=== PATIENT | female | born 1990 | race Caucasian/White ===

== ENCOUNTER 2018-08-19 06:21 | Inpatient (IN) ==
[2018-08-19] MEDS ORDERED: Naloxone Inj 0.4 MG/ML Vial IV.PUSH PRN ×2 (07:49→17:28)
[2018-08-19] MEDS ORDERED: fentaNYL Citrate Inj 100 MCG/2 ML Ampul IV.PUSH PRN ×2 (07:49)
[2018-08-19] MEDS ORDERED: Oxytocin 30 Units/500ml Premix 30 UNITS/500 ML BAG IV.SIG ONE (07:49)
[2018-08-19] MEDS ORDERED: Sodium Chlor 0.9% Inj 500 ML IV.SIG PRN (07:49)
[2018-08-19] MEDS ORDERED: Oxytocin 30 Units/500ml Premix 30 UNITS/500 ML BAG IV.SIG PRN (07:52)
[2018-08-19 07:57] LABS: Baso % (Auto) 0.3 % (0.0-2.0); Eos # (Auto) 0.1 th/mm3 (0.0-0.4); Eos % (Auto) 0.7 % (0.0-4.0); Hematocrit 29.5 % (35.0-46.0); Hemoglobin 9.3 gm/dL (11.6-15.3); Lymph # (Auto) 2.2 th/mm3 (1.0-4.8); Lymph % (Auto) 21.4 % (9.0-44.0); Mean Corpuscular HGB Conc 31.6 % (32.0-36.0); Mean Corpuscular Hemoglobin 22.7 pg (27.0-34.0); Mean Corpuscular Volume 71.9 fL (80.0-100.0); Mean Platelet Volume 9.3 fL (7.0-11.0); Mono # (Auto) 0.7 th/mm3 (0.0-0.9); Mono % (Auto) 6.5 % (0.0-8.0); Neut # (Auto) 7.2 th/mm3 (1.8-7.7); Neut % (Auto) 71.1 % (16.0-70.0); Platelet Count 202 th/mm3 (150-450); Red Cell Distribution Width 16.5 % (11.6-17.2); White Blood Count 10.2 th/mm3 (4.0-11.0)
[2018-08-19] MEDS ORDERED: Citric Acid/Sodium Citrate Liq 30 ML UDC PO SCH (08:00)
[2018-08-19 08:01] LABS: Bacteria,Urine Rare /hpf; Bilirubin,Urine Negative (Negative); Clarity,Urine Clear (Clear); Color,Urine Yellow (Yellw/Straw); Glucose,Urine (UA) Negative (Negative); Leukocyte Esterase,Urine Small (Negative); Nitrite,Urine Negative (Negative); Specific Gravity,Urine 1.012 (1.002-1.035); Squamous Epithelial Cell,Urine 2 /hpf (0-5)
--- NOTE | 2018-08-19 08:09 | P.HPOB ---
History of Present Illness Service: labor Primary Care Physician: Earnestine Smart MD Chief Complaint: 39+ weeks mild pre eclampsia History of Present Illness: 28 yo mwf P2 at 39 1/7 weeks EGA here for arom and pitocin if needed. Has had mild nausea, vomiting, intermittent headaches, marked edema. Labs have been reassuring. No leaking, bleeding or regular contractions. PNC with HOGA Mild elevated BPs through the . 2 prior term SVDs. Hx of LGSIL GBS negative No GDM or PTL. - Inpatient Certification I certify that the inpatient services were ordered in accordance with Medicare regulations governing the order. This includes certification that hospital inpatient services are reasonable and necessary and in the case of services not specified as inpatient-only under 42 CFR 419.22(n), that they are appropriately provided as inpatient services in accordance to with the 2-midnight benchmark under 43 CFR 412.3(e) Estimated Total Length of Stay (Days): 3 Plans for Post Hospital Care: Home Review of Systems All other systems reviewed negative except as stated in HPI [facility] - Medical History Medical History: Medical History (Last Updated 07/25/18 @ 19:22 by Reji Queen MD) Asthma - Social History I have reviewed the patient's Social History: Yes - Tobacco History Second Hand Smoke Exposure: No Smoking Status: Never smoker - Travel History Recent Travel in the [place] Within the Last 8 Weeks: No Recent Travel Out of the Country Within the Last 8 Weeks: No - Immunization History Tetanus Immunization: Unsure Hx Influenza Vaccine This Season: No Medications and Allergies Active Medications: Active Medications Citric Acid/Sodium Citrate (Sodium Citrate/Citric Acid Liq) 30 ml PO [employer]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 [facility] Stop: 08/23/18 07:59 Fentanyl Citrate (Fentanyl Inj) 50 mcg IV.PUSH Q1H PRN PRN Reason: Pain Scale 3 - 5 Fentanyl Citrate (Fentanyl Inj) 100 mcg IV.PUSH Q1H PRN PRN Reason: PAIN SCALE 6 TO 10 Lactated Ringer's (Lr 1000 Ml Inj) 1,000 mls @ 3,000 mls/hr IV.SIG UNSCH PRN PRN Reason: compromise or epidural Sodium Chloride (Ns Inj) 500 mls @ 1,000 mls/hr IV.SIG UNSCH PRN PRN Reason: SEE LABEL COMMENTS Sodium Chloride (Ns Inj) 1,000 mls @ 100 mls/hr IV.CONT .Q10H PRN PRN Reason: SEE LABEL COMMENTS Oxytocin (Pitocin 30 Units/Ns 500 Ml Premix) 30 units in 500 mls @ 999 mls/hr IV.SIG BOLUS ONE Stop: 08/19/18 08:19 Lactated Ringer's (Lr 1000 Ml Inj) 1,000 mls @ 125 mls/hr IV.CONT .Q8H JANNIE Oxytocin (Pitocin 30 Units/Ns 500 Ml Premix) 30 units in 500 mls @ 2 mls/hr IV.SIG TITRATE PRN; Protocol PRN Reason: For induction of labor Lidocaine HCl (Xylocaine 1% Inj) 0.1 ml I-DERMAL PRN PRN PRN Reason: For IV start Stop: 08/22/18 07:48 Lidocaine HCl (Xylocaine 1% Inj) 10 ml INFILTRATN PRN PRN PRN Reason: For episiotomy repair Stop: 08/21/18 07:48 Mineral Oil (Muri-Lube Oil) 10 ml TOPICAL PRN PRN PRN Reason: PRN perineal massage Naloxone HCl (Narcan Inj) 0.1 mg IV.PUSH Q2M PRN PRN Reason: for opiate reversal Allergies Allergy/AdvReac Type Severity Reaction Status Date / Time amoxicillin Allergy Severe hives Verified 04/01/18 12:55 Home Medications Medication Instructions Recorded Confirmed Type PNV cmb#95-ferrous fumarate-FA 1 tab PO DAILY 04/01/18 08/19/18 History [] albuterol sulfate 1 puff INHALATION Q4-6H PRN 04/01/18 08/19/18 History ferrous sulfate [Iron (ferrous 325 mg PO BID 08/19/18 08/19/18 History sulfate)] Exam Vital signs: Vital Signs 08/19/18 07:05 Temperature 98.8 F Pulse Rate 85 Respiratory Rate 18 Blood Pressure 114/64 Intake & Output 08/18/18 08/19/18 08/19/18 18:59 06:59 18:59 Weight 106.594 kg 105.233 kg Other: Weight On Admission 105.233 kg - Constitutional no acute distress - Routine HEENT Exam Head: Present: normocephalic Eye: Present: PERRL ENT: Present: mucous membranes moist - Routine Neck Exam Present: supple - Routine Respiratory Exam Present: CTA bilaterally - Routine Cardiovascular Exam Present: RRR - Routine Abdominal Exam Present: soft, normoactive bowel sounds - Routine Extremities Exam Present: edema - Routine Skin Exam Present: intact - Routine Neurological Exam Present: alert, oriented X3 (2-3/ 30%/-2 arom clear and minimal EFW 7 1/2 ounds pelvis proven) Results - Labs CBC & Chem 7: 08/19/18 06:58 08/19/18 06:58 Labs: Laboratory Results - last 24 hr 08/19/18 08/19/18 06:58 06:58 WBC 10.2 RBC 4.10 Hgb 9.3 L Hct 29.5 L MCV 71.9 L MCH 22.7 L MCHC 31.6 L RDW 16.5 Plt Count 202 MPV 9.3 Neut % (Auto) 71.1 H Lymph % (Auto) 21.4 Dukes % (Auto) 6.5 Eos % (Auto) 0.7 Baso % (Auto) 0.3 Neut # (Auto) 7.2 Lymph # (Auto) 2.2 Dukes # (Auto) 0.7 Eos # (Auto) 0.1 Baso # (Auto) 0.0 WBC Differential . Differential Comment Auto diff final Urine Color Yellow Urine Clarity Clear Urine pH 5.0 Ur Specific [place] 1.012 Urine Protein Negative Urine Glucose (UA) Negative Urine Ketones Negative Urine Occult Blood Small H Urine Nitrate Negative Urine Bilirubin Negative Urine Urobilinogen Less than 2 Ur Leukocyte Esterase Small H Urine RBC 1 Urine WBC 3 Ur Squamous Epith Cells 2 Urine Bacteria Rare H Micro UA Comment Culture not ind Ur Microscopic Review Not Reportable Urine Culture Comments Culture not ind Caprini VTE Risk Assessment Caprini VTE Risk Assessment: No/Low Risk (score <= 1) Caprini Risk Assessment Model: Point Value = 1 Point Value = 2 Point Value = 3 Point Value = 5 Age 41-60 Minor surgery BMI > 25 kg/m2 Swollen legs Varicose veins or History of unexplained or recurrent spontaneous Oral contraceptives or hormone replacement Sepsis (< 1 month) Serious lung disease, including pneumonia (< 1 month) Abnormal pulmonary function Acute myocardial infarction Congestive heart failure (< 1 month) History of inflammatory bowel disease Medical patient at bed rest Age 61-74 Arthroscopic surgery Major open surgery (> 45 min) Laparoscopic surgery (> 45 min) Malignancy Confined to bed (> 72 hours) Immobilizing plaster cast Central venous access Age >= 75 History of VTE Family history of VTE Factor V Leiden Prothrombin [id number] Lupus anticoagulant Anticardiolipin antibodies Elevated serum homocysteine Heparin-induced thrombocytopenia Other congenital or acquired thrombophilia Stroke (< 1 month) Elective arthroplasty Hip, pelvis, or leg fracture Acute spinal cord injury (< 1 month) Prophylaxis Regimen: Total Risk Factor Score Risk Level Prophylaxis Regimen 0-1 Low Early ambulation 2 Moderate Order ONE of the following: *Sequential Compression Device (SCD) *Heparin 5000 units SQ BID 3-4 Higher Order ONE of the following medications: *Heparin 5000 units SQ TID *Enoxaparin/Lovenox 40 mg SQ daily (WT < 150 kg, CrCl > 30 mL/min) *Enoxaparin/Lovenox 30 mg SQ daily (WT < 150 kg, CrCl > 10-29 mL/min) *Enoxaparin/Lovenox 30 mg SQ BID (WT < 150 kg, CrCl > 30 mL/min) AND/OR *Sequential Compression Device (SCD) 5 or more Highest Order ONE of the following medications: *Heparin 5000 units SQ TID (Preferred with Epidurals) *Enoxaparin/Lovenox 40 mg SQ daily (WT < 150 kg, CrCl > 30 mL/min) *Enoxaparin/Lovenox 30 mg SQ daily (WT < 150 kg, CrCl > 10-29 mL/min) *Enoxaparin/Lovenox 30 mg SQ BID (WT < 150 kg, CrCl > 30 mL/min) AND *Sequential Compression Device (SCD) Assessment and Plan - Diagnosis (1) 39 weeks gestation of Code(s): Z3A.39 - 39 weeks gestation of Status: Acute (2) Pre-eclampsia Code(s): O14.90 - Unspecified pre-eclampsia, unspecified trimester Status: Acute - Plan anticipate normotensive at this time so will not treat as hypertensive unless BP elevated
[2018-08-19 08:16] LABS: Alanine Aminotransferase 18 U/L (10-53); Albumin 2.6 g/dL (3.4-5.0); Anion Gap 8 meq/L (5-15); Aspartate Aminotransferase 19 U/L (15-37); Blood Urea Nitrogen 7 mg/dL (7-18); Calcium 8.9 mg/dL (8.5-10.1); Carbon Dioxide 24.1 meq/L (21.0-32.0); Chloride 106 meq/L (98-107); Glomerular Filtration Rate Greater Than 89 mL/min (>89); Glucose,Random 76 mg/dL (74-106); Sodium 138 meq/L (136-145)
[2018-08-19 08:18] LABS: Alkaline Phosphatase 162 U/L (45-117); Total Protein 6.9 g/dL (6.4-8.2)
[2018-08-19] MEDS ORDERED: fentaNYL 2MCG-Bupiv 0.125% Epi 150 ML EPIDURAL ONE (11:42)
--- NOTE | 2018-08-19 11:48 | P.OBGPN ---
This is copied and pasted H&P from dicated H&P, the transcribed note was placed in a different patient encounter DATE OF ANTICIPATED ADMISSION: 08/18/2018 CHIEF COMPLAINT: Induction of labor. HISTORY OF PRESENT ILLNESS: This patient is a 28-year-old G4, P2-0-1-2 who will be at 39 weeks and 1 day by her LMP and a 16-week ultrasound with estimated due date of 08/24/2018, admitted for induction of labor. PAST MEDICAL HISTORY: Asthma, obesity. MEDICATIONS: 1. Albuterol. 2. vitamins. 3. Iron. ALLERGIES: AMOXICILLIN. SURGICAL HISTORY: D and C. SOCIAL HISTORY: No tobacco, alcohol or drug use. FAMILY HISTORY: No pertinent positive family history. OBSTETRICAL HISTORY: SAB at 16 weeks in 2013 with D and C; 2011 had a vaginal delivery, weighing 7 pounds 7 ounces; in 2012, a term vaginal delivery without complication. PHYSICAL EXAMINATION: Based on encounter from 08/10/2018. GENERAL: Alert, oriented x3, resting comfortably, in no acute distress. PULMONARY: Lungs are clear to auscultation bilaterally. CARDIAC: Regular rate and rhythm. No murmurs, rubs or gallops. ABDOMEN: Soft, gravid, nontender. GENITOURINARY: Normal external genitalia. One, thick, high soft and anterior. EXTREMITIES: No clubbing, cyanosis or edema. LABS: Please see scanned in [facility] records. ASSESSMENT AND PLAN: This patient is a 28-year-old G4, P2-0-1-2 who will be at 39 weeks and 1 day, with estimated due date of 08/24/2018 for induction of labor for social reasons: 1. : Will be placed on monitoring upon arrival; she is having a male named [place]. She has an anterior placenta. GBS negative. Estimated weight on 08/03/2018 is 3023 grams in the 62nd percentile. 2. Induction of labor: Romero score of 5; plan for vaginal misoprostol every 4 hours until favorable, discussed risks of induction of labor. 3. Asthma, mild: Controlled without medications. 4. Obesity, Passed 1-hour Glucola. 5. History of trichomonas: Status post treatment and test of cure negative this . 6. Anemia: May type and screen or cross depending on her level upon arrival, has been taking iron throughout her .
[2018-08-19] MEDS ORDERED: fentaNYL Citrate Inj 100 MCG/2 ML Ampul EPIDURAL ONE (13:01)
[2018-08-19] MEDS ORDERED: fentaNYL 2MCG-Bupiv 0.125% Epi 150 ML EPIDURAL PRN (13:01)
[2018-08-19] MEDS: Sod Chloride 0.9% Inj 1,000 ML IV.CONT PRN ×2 (15:05→15:17)
[2018-08-19] MEDS ORDERED: Measles/Mumps/Rubella Vaccine Inj 0.5 ML Vial SQ ONE (16:00)
[2018-08-19] MEDS ORDERED: Diphtheria/Tetanus/Pertussis Vaccine Inj 0.5 ML Syringe IM ONE (16:00)
[2018-08-19 17:26] LABS: Cord Arterial Blood HCO3 25.3
[2018-08-19] MEDS ORDERED: Oxytocin 30 Units/500ml Premix 30 UNITS/500 ML BAG IV.CONT PRN (17:28)
[2018-08-19] MEDS ORDERED: Benzocaine 20% Top Spray 60 ML Can TOPICAL PRN (17:28)
[2018-08-19] MEDS ORDERED: Witch Hazel 50%/Glyderin 12.5% 40 Pad Jar RECTAL PRN (17:28)
[2018-08-19] MEDS ORDERED: Bisacodyl 10 MG Supp RECTAL PRN (17:28)
--- NOTE | 2018-08-19 17:28 | P.OBDELI ---
Weeks Gestation: 39 Patient Started Active Labor: Yes Medical Induction of Labor: Yes Artificial Rupture of Membrane: Yes Anesthesia: Epidural Episiotomy: none Vaginal Delivery: Normal Presentation: Occiput anterior Nuchal Cord: x1 Delayed Cord Clamping (45 sec): No (tightly around neck and very short) Placenta: Spontaneous delivery, Intact, 3 vessel cord, Cord pH Laceration: None Estimated blood loss (mL): 300 : Male Infant Male A Infant Delivery Date: 08/19/18 Delivery Time: 17:27 score (1 min): 8 score (5 min): 9
[2018-08-19] MEDS ORDERED: Zolpidem Tartrate 5 MG Tablet PO PRN (21:00)
[2018-08-19] MEDS: Senna/Docusate Sodium 8.6/50 MG Tablet PO SCH (21:00)
[2018-08-20] MEDS: Acetaminophen 325 MG Tablet PO PRN ×3 (00:30→20:16)
--- NOTE | 2018-08-20 08:12 | P.PNOB ---
Subjective Post day: 1 Interval history: resting quietly discussed that her infant is headed to NICU for some persistent TTN--likely due to the very short cord/nuchal cord and stress with labor. Should be self limiting. reassured will breast feed no complaints Objective Vital Signs/I&O: Vital Signs 08/19/18 08:30 08/19/18 09:00 08/19/18 09:15 Temperature 98.2 F Pulse Rate 98 H 95 H Respiratory Rate 17 Blood Pressure 125/86 122/79 08/19/18 09:26 08/19/18 09:52 08/19/18 10:00 Temperature Pulse Rate 97 H 97 H 91 H Respiratory Rate Blood Pressure 97/66 L 109/79 128/90 08/19/18 10:50 08/19/18 11:00 08/19/18 11:30 Temperature Pulse Rate 92 H 91 H 87 Respiratory Rate 16 Blood Pressure 115/80 120/78 125/77 08/19/18 11:41 08/19/18 12:15 08/19/18 12:30 Temperature 98.9 F Pulse Rate 104 H 97 H Respiratory Rate 18 Blood Pressure 132/81 100/51 L 08/19/18 13:00 08/19/18 13:05 08/19/18 13:10 Temperature 98.2 F Pulse Rate 91 H 89 90 Respiratory Rate Blood Pressure 96/64 L 102/57 L 08/19/18 13:55 08/19/18 14:05 08/19/18 14:10 Temperature Pulse Rate 87 88 86 Respiratory Rate Blood Pressure 103/64 08/19/18 14:25 08/19/18 14:30 08/19/18 15:15 Temperature 98.7 F Pulse Rate 100 H 89 110 H Respiratory Rate Blood Pressure 111/74 96/62 L 08/19/18 15:40 08/19/18 15:50 08/19/18 16:10 Temperature Pulse Rate 105 H 116 H 95 H Respiratory Rate Blood Pressure 122/74 116/56 L 114/77 08/19/18 16:25 08/19/18 16:35 08/19/18 17:01 Temperature 99.4 F Pulse Rate 117 H 113 H 108 H Respiratory Rate Blood Pressure 122/85 108/55 L 08/19/18 17:03 08/19/18 17:05 08/19/18 17:10 Temperature Pulse Rate 109 H 125 H Respiratory Rate 16 Blood Pressure 08/19/18 17:45 08/19/18 18:00 08/19/18 18:06 Temperature 98.7 F Pulse Rate 108 H 99 H Respiratory Rate 16 Blood Pressure 130/79 118/72 08/19/18 18:15 08/19/18 19:30 08/20/18 07:55 Temperature 99.0 F 98.2 F Pulse Rate 97 H 94 H 59 L Respiratory Rate 18 18 Blood Pressure 127/78 126/76 123/79 Intake & Output 08/19/18 08/20/18 08/20/18 18:59 06:59 18:59 Intake Total 3000 / 3000 Balance 3000 / 3000 Weight 105.233 kg Intake: IV 3000 / 3000 LR 1000 mL Inj 1,000 ML @ 125 2000 / 2000 mls/hr IV.CONT .Q8H JANNIE Rx#: [id number] NS Inj 1,000 ML @ 100 mls/hr IV 1000 / 1000 .CONT .Q10H PRN Rx#:[id number] Other: Weight On Admission 105.233 kg Result Diagrams: 08/19/18 06:58 08/19/18 06:58 Objective Remarks: GENERAL: Well-nourished, well-developed patient. CARDIOVASCULAR: Regular rate and rhythm without murmurs, gallops, or rubs. RESPIRATORY: Breath sounds equal bilaterally. No accessory muscle use. ABDOMEN/GI: Abdomen soft, non-tender. Fundus: Firm, non-tender at umbilicus. GENITOURINARY: Light to moderate bleeding. EXTREMITIES: No cyanosis or edema, non-tender, without signs of DVT. 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 [facility] Stop: 08/23/18 07:59 Ephedrine Sulfate (Ephedrine/Ns Syringe) 10 mg IV.PUSH UNSCH PRN PRN Reason: SEE LABEL COMMENTS Stop: 08/20/18 13:01 Fentanyl Citrate (Fentanyl Inj) 50 mcg IV.PUSH Q1H PRN PRN Reason: Pain Scale 3 - 5 Fentanyl Citrate (Fentanyl Inj) 100 mcg IV.PUSH Q1H PRN PRN Reason: PAIN SCALE 6 TO 10 Lactated Ringer's (Lr 1000 Ml Inj) 1,000 mls @ 3,000 mls/hr IV.SIG UNSCH PRN PRN Reason: compromise or epidural Last Admin: 08/19/18 12:16 Dose: 3,000 mls/hr Sodium Chloride (Ns Inj) 500 mls @ 1,000 mls/hr IV.SIG UNSCH PRN PRN Reason: SEE LABEL COMMENTS Sodium Chloride (Ns Inj) 1,000 mls @ 100 mls/hr IV.CONT .Q10H PRN PRN Reason: SEE LABEL COMMENTS Last Admin: 08/19/18 15:17 Dose: 100 mls/hr Lactated Ringer's (Lr 1000 Ml Inj) 1,000 mls @ 125 mls/hr IV.CONT .Q8H JANNIE Last Admin: 08/19/18 15:16 Dose: 125 mls/hr Fentanyl/Bupivacaine/Sodium Chlor (Fentanyl 2 Mcg-Bupiv 0.125% Epi) 150 mls @ 10 mls/hr EPIDURAL PRN PRN PRN Reason: for Labor Pain Oxytocin (Pitocin 30 Units/Ns 500 Ml Premix) 30 units in 500 mls @ 100 mls/hr IV.CONT UNSCH PRN PRN Reason: Heavy bleeding Ibuprofen (Motrin) 800 mg PO Q8H PRN PRN Reason: For Cramping Last Admin: 08/20/18 00:29 Dose: 800 mg Lactulose (Lactulose Liq) 30 ml PO DAILY PRN PRN Reason: SEVERE CONSITIPATION Lidocaine HCl (Xylocaine 1% Inj) 0.1 ml I-DERMAL PRN PRN PRN Reason: For IV start Stop: 08/22/18 07:48 Lidocaine HCl (Xylocaine 1% Inj) 10 ml INFILTRATN PRN PRN PRN Reason: For episiotomy repair Stop: 08/21/18 07:48 Mineral Oil (Muri-Lube Oil) 10 ml TOPICAL PRN PRN PRN Reason: PRN perineal massage Miscellaneous Information (Misc Information) 1 each OTHER UNSCH PRN PRN Reason: SEE LABEL COMMENTS Stop: 08/20/18 13:01 Naloxone HCl (Narcan Inj) 0.1 mg IV.PUSH Q2M PRN PRN Reason: for opiate reversal Ondansetron HCl (Zofran Odt) 4 mg PO Q6H PRN PRN Reason: NAUSEA OR VOMITING Senna/Docusate Sodium (Julisa-Colace) 1 tab PO BID [facility] Last Admin: 08/19/18 21:00 Dose: Not Given Sennosides (Senokot) 17.2 mg PO Q12H PRN PRN Reason: Moderate Constipation Sodium Chloride (Ns Flush) 2 ml IV.FLUSH BID [facility] Last Admin: 08/20/18 01:03 Dose: Not Given Sodium Chloride (Ns Flush) 2 ml IV.FLUSH PRN PRN PRN Reason: FLUSH AFTER USING IV ACCESS Witch Mahnaz/Glycerin (Tucks Pads) 1 applicatio RECTAL QID PRN PRN Reason: HEMORRHOIDS Zolpidem Tartrate (Ambien) 5 mg PO HS PRN PRN Reason: SLEEP Assessment and Plan - Diagnosis (1) 39 weeks gestation of Code(s): Z3A.39 - 39 weeks gestation of Status: Acute (2) Pre-eclampsia Code(s): O14.90 - Unspecified pre-eclampsia, unspecified trimester Status: Acute - Plan anticipate normotensive at this time so will not treat as hypertensive unless BP elevated 08/20/18 PPD 1 rest today routine detention in am unless infant stays.
[2018-08-20] MEDS: Senna/Docusate Sodium 8.6/50 MG Tablet PO SCH ×2 (17:06→20:17)
[2018-08-21 08:46] VITALS: BP 120/61; PULSE 79; RESP 18; TEMP 97.9
--- NOTE | 2018-08-21 08:48 | P.PNOB ---
Subjective Post day: 2 Objective Vital Signs/I&O: Vital Signs 08/20/18 20:00 08/21/18 08:00 Temperature 98.3 F Pulse Rate 83 79 Respiratory Rate 20 18 Blood Pressure 119/78 120/61 Result Diagrams: 08/19/18 06:58 08/19/18 06:58 Objective Remarks: GENERAL: Well-nourished, well-developed patient. CARDIOVASCULAR: Regular rate and rhythm without murmurs, gallops, or rubs. RESPIRATORY: Breath sounds equal bilaterally. No accessory muscle use. ABDOMEN/GI: Abdomen soft, non-tender. Fundus: Firm, non-tender at umbilicus. GENITOURINARY: Light to moderate bleeding. EXTREMITIES: No cyanosis or edema, non-tender, without signs of DVT. 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 [facility] Stop: 08/23/18 07:59 Fentanyl Citrate (Fentanyl Inj) 50 mcg IV.PUSH Q1H PRN PRN Reason: Pain Scale 3 - 5 Fentanyl Citrate (Fentanyl Inj) 100 mcg IV.PUSH Q1H PRN PRN Reason: PAIN SCALE 6 TO 10 Lactated Ringer's (Lr 1000 Ml Inj) 1,000 mls @ 3,000 mls/hr IV.SIG UNSCH PRN PRN Reason: compromise or epidural Last Admin: 08/19/18 12:16 Dose: 3,000 mls/hr Sodium Chloride (Ns Inj) 500 mls @ 1,000 mls/hr IV.SIG UNSCH PRN PRN Reason: SEE LABEL COMMENTS Sodium Chloride (Ns Inj) 1,000 mls @ 100 mls/hr IV.CONT .Q10H PRN PRN Reason: SEE LABEL COMMENTS Last Admin: 08/19/18 15:17 Dose: 100 mls/hr Lactated Ringer's (Lr 1000 Ml Inj) 1,000 mls @ 125 mls/hr IV.CONT .Q8H [facility] Last Admin: 08/20/18 22:07 Dose: Not Given Fentanyl/Bupivacaine/Sodium Chlor (Fentanyl 2 Mcg-Bupiv 0.125% Epi) 150 mls @ 10 mls/hr EPIDURAL PRN PRN PRN Reason: for Labor Pain Oxytocin (Pitocin 30 Units/Ns 500 Ml Premix) 30 units in 500 mls @ 100 mls/hr IV.CONT UNSCH PRN PRN Reason: Heavy bleeding Ibuprofen (Motrin) 800 mg PO Q8H PRN PRN Reason: For Cramping Last Admin: 08/20/18 20:16 Dose: 800 mg Lactulose (Lactulose Liq) 30 ml PO DAILY PRN PRN Reason: SEVERE CONSITIPATION Lidocaine HCl (Xylocaine 1% Inj) 0.1 ml I-DERMAL PRN PRN PRN Reason: For IV start Stop: 08/22/18 07:48 Mineral Oil (Muri-Lube Oil) 10 ml TOPICAL PRN PRN PRN Reason: PRN perineal massage Naloxone HCl (Narcan Inj) 0.1 mg IV.PUSH Q2M PRN PRN Reason: for opiate reversal Ondansetron HCl (Zofran Odt) 4 mg PO Q6H PRN PRN Reason: NAUSEA OR VOMITING Senna/Docusate Sodium (Julisa-Colace) 1 tab PO BID [facility] Last Admin: 08/20/18 20:17 Dose: 1 tab Sennosides (Senokot) 17.2 mg PO Q12H PRN PRN Reason: Moderate Constipation Sodium Chloride (Ns Flush) 2 ml IV.FLUSH BID [facility] Last Admin: 08/20/18 20:18 Dose: Not Given Sodium Chloride (Ns Flush) 2 ml IV.FLUSH PRN PRN PRN Reason: FLUSH AFTER USING IV ACCESS Witch Mahnaz/Glycerin (Tucks Pads) 1 applicatio RECTAL QID PRN PRN Reason: HEMORRHOIDS Zolpidem Tartrate (Ambien) 5 mg PO HS PRN PRN Reason: SLEEP Assessment and Plan - Diagnosis (1) 39 weeks gestation of Code(s): Z3A.39 - 39 weeks gestation of Status: Acute (2) Pre-eclampsia Code(s): O14.90 - Unspecified pre-eclampsia, unspecified trimester Status: Acute - Plan anticipate normotensive at this time so will not treat as hypertensive unless BP elevated 08/20/18 PPD 1 rest today routine long-term in am unless stays 08/21/18 PPD 2, 3rd baby, doing well, no complaints, baby weaning off CPAP in NICU d/c home, rto 2 wks
== END 2018-08-21 12:36 | disposition home or self-care (01) | DRG 807 ==
LOC: H2E 06:21 → H1EA 19:08
PROVIDERS: ADMIT Obstetrics & Gynecology; ATTEND Obstetrics & Gynecology
CPT/HCPCS: 59025; 80053; 81001; 82805; 85025; 86850; 86900; 86901; J2590; J7030; J7120